=== PATIENT | female | born 1995 | race Two or more races ===

== ENCOUNTER 2019-04-21 00:26 | Emergency (ER) | payer SELFPAY ==
[2019-04-21] MEDS ORDERED: Ibuprofen 600 MG Tab PO ONE (00:42)
--- NOTE | 2019-04-21 00:43 | EDM.PDOC ---
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 Dates she usually has regular periods monthly basis. She is trying to conceive for the last 3 years. She has conceived once in the past and has a daughter at home. She's been told in the past that she had an enlarged uterus. She has had past STDs with positive chlamydia treated. She has a history of recurrent herpes genitalis. She states she had a fairly heavy. On time and is expected that lasted 7 days. This finished 3 days ago. This last evening she started falling heavily per vagina again for the last 2 hours. She states has never happened before. With a history of a 7 day menstrual cycle it's unlikely that she could be . She wishes to be checked again for possible STDs. She needs to have a ruled out. Chances are this is dysfunctional uterine bleeding by history. Associated diffuse low back pain and menstrual cramping pain. She states it feels like is the first day of her menstrual cycle over again. She has not taken any Tylenol or Motrin for pain. Onset: Today Onset Date: 04/20/19 Onset Time: 22:00 Duration: Hour(s):, Getting Worse Location: Reports: Abdomen (Diffuse lower abdominal cramping pain i.e.), Back ( [place] menstrual pain.) Quality: Reports: Ache ( back discomfort. ), Other Severity: Moderate (Menstrual cramps 6 out of 10) Improves with: Reports: None Worsens with: Reports: None Context: Reports: Other. Denies: Activity, Exercise, Lifting, Sick Contact, Trauma Associated Symptoms: Reports: Loss of Appetite, Malaise. 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 Denies: Fever, Chills HEENT: Reports: No Symptoms Respiratory: Reports: No Symptoms Cardiovascular: Reports: No Symptoms Endocrine: Reports: Fatigue GI/Abdominal: Reports: Abdominal Pain (Diffuse suprapubic abdominal pain rating to her back secondary to onset of menses.) : Reports: Irregular Menses. Denies: Frequency, Urgency Musculoskeletal: Reports: Back Pain (Low back pain associated with recurrent menses.) Skin: Reports: No Symptoms Neurological: Reports: No Symptoms Psychiatric: Reports: No Symptoms Hematologic/Lymphatic: Reports: No Symptoms ED EXAM, RENAL/ - Physical Exam Exam: See Below Exam Limited By: No Limitations General Appearance: Alert, WD/WN, Anxious (Mildly anxious.), Mild Distress Eye Exam: Bilateral Eye: Normal Inspection Head: Atraumatic, Normocephalic Neck: Normal Inspection, Supple, Non-Tender, Full Range of Motion. No: Lymphadenopathy (L), Lymphadenopathy (R) Respiratory/Chest: No Respiratory Distress, Lungs Clear, Normal Breath Sounds, No Accessory Muscle Use, Chest Non-Tender Cardiovascular: Normal Peripheral Pulses, Regular Rate, Rhythm, No Edema, No Gallop, No Murmur, No Rub GI/Abdominal: Tender, Abnormal Bowel Sounds (Mildly hyperactive bowel sounds all 4 quadrants.). No: Guarding (Mild a tender epigastrium and suprapubically.) , Rigid, Rebound Back Exam: Normal Inspection, Full Range of Motion. No: CVA Tenderness (L), CVA Tenderness (R) Extremities: Normal Inspection, Normal Range of Motion, Non-Tender Neurological: Alert, Oriented, CN II-XII Intact, Normal Cognition Psychiatric: Anxious Skin Exam: Warm, Dry (Mildly anxious), Intact, Normal Color, No Rash Course - Vital Signs Last Recorded V/S: Last Vital Signs Temp 36.4 C 04/21/19 00:36 Pulse 82 04/21/19 00:36 Resp 18 04/21/19 00:36 BP 130/66 04/21/19 00:36 Pulse Ox 97 04/21/19 00:36 - Orders/Labs/Meds Labs: Laboratory Tests 04/21/19 04/21/19 Range/Units 00:48 01:20 Urine HCG, Qual Negative (NEGATIVE) C trachomatis DNA (PCR) Detected H N gonorrhoeae DNA (PCR) Not detected Meds: Medications Discontinued Medications Generic Name Dose Route Start Last Admin Trade Name Dejah PRN Reason Stop Dose Admin Ibuprofen 600 mg 04/21/19 00:42 04/21/19 00:46 Motrin PO 04/21/19 00:43 600 mg ONETIME ONE Administration Medroxyprogesterone Acetate 10 mg 04/21/19 01:28 Provera PO 04/21/19 01:29 ONETIME ONE - Radiology Interpretation Free Text/Narrative:: 23-year-old female presents the ED with bleeding per vagina 2 hours. Note this follows a heavy menstrual cycle of 7 days duration. She had 3 days in between vaginal flow. She is concerned that she may have recurrence of the STD. However she is involved in a monogamous relationship. She's been trying to conceive for the last 3 years without success. She has 1 daughter at home. She is . She has a history of genital herpes. Has a history of chlamydia treated in the past. Associated menstrual cramps like the first day of her menstrual cycle and associated low back pain. Plan Motrin 600 mg by mouth for now. Urinalysis to be obtained to rule out . He will also be checked for chlamydia and gonorrhea at the patient's request. Suspect dysfunctional uterine bleeding. We' ll await the urine status. - Re-Assessments/Exams Free Text/Narrative Re-Assessment/Exam: 04/21/19 01:24 Urine test did come back negative. Urine will be screened for chlamydia and gonorrhea and I will call her later this morning with the results. Therefore she has dysfunctional uterine bleeding. I discussed the findings with her. Plan will be to place her on Provera 10 mg every night at bedtime for the next 10 days . My plan was to start her on tablet tonight through the ED but Provera is not available in the hospital. She will therefore have to pick it up at the pharmacy later today. 04/21/19 03:53 urine was negative for any chlamydia or gonorrhea. Patient will be notified by phone later this morning of the results. Departure - Departure Time of Disposition: 01:28 Disposition: Home, Self-Care 01 Condition: Fair Clinical Impression: Dysfunctional uterine bleeding - Discharge Information *PRESCRIPTION DRUG MONITORING PROGRAM REVIEWED*: Not Applicable *COPY OF PRESCRIPTION DRUG MONITORING REPORT IN PATIENT GAB: Not Applicable Prescriptions: medroxyPROGESTERone [Provera] 10 mg PO DAILY #10 tab Instructions: Dysfunctional Uterine Bleeding Referrals: PCP,Not In Area [Primary Care Provider] - Forms: ED Department Discharge Additional Instructions: Evaluation in the emergency room tonight in regards to development of. Or heavy menstrual flow per vagina 3 days after completing a 7 day menstrual cycle. test was negative. This means that there is a hormone imbalance, where there is abnormal growth of the lining of the uterus in different places causing the lining to shed at different intervals. We call this dysfunctional uterine bleeding. Treatment is reset of the cycle with hormone Provera. It's a 10 mg tablet that is taken once daily every night at bedtime with food in your stomach. My plan was to give you the first tablet while you were here in the emergency department but and partially it is not available in the hospital at this time It is okay to use Motrin 600 mg every 6 hours as needed for relief of menstrual cramping pain and it also helps reduce the amount of vaginal flow. Usually. Will stop within 2 days of starting the Provera tablets and he will have a period 2-3 days after completion of the 10 tablets which will make the entire lining of the uterus shed at the same time. Follow-up with your personal care physician or shank rander if any further problems occur. Myself or one of the nurses in the emergency department will call you later this morning with the results of your STD check on the urine.
[2019-04-21 02:53] LABS: C. TRACHOMATIS BY PCR DETECTED; N. GONORRHOEAE BY PCR NOT DETECTED
== END 2019-04-21 01:49 | disposition home or self-care (01) ==
LOC: JD.ED 00:26
DX: N93.8 Other specified abnormal uterine and vaginal bleeding (principal); Z79.899 Other long term (current) drug therapy
CPT/HCPCS: 81025; 87491; 87591; 99284; A9270; 99283